=== PATIENT | male | born 1995 | race African-American/Black ===

== ENCOUNTER 2019-07-29 15:07 | Emergency (ER) | payer OTHER ==
[~2019-07-29] VITALS: Ht 177.8 cm; Wt 82.7 kg
[2019-07-29] MEDS ORDERED: LIDOCAINE 1% MDV 20ML VIAL SC ONE (16:45)
[2019-07-29] MEDS ORDERED: BACTRIM 160MG/800MG DS TAB PO ONE (17:45)
[2019-07-29] MEDS ORDERED: BACT800T5 PO (17:48)
[2019-07-29 18:05] VITALS: BP 140/80
[2019-07-30] MEDS ORDERED: BACT800T5 PO (19:15)
== END 2019-07-29 18:08 | disposition home or self-care (01) ==
LOC: M ED 15:07
DX: N48.21 Abscess of corpus cavernosum and penis (principal)